=== PATIENT | male | born 1935 | race Asian ===

== ENCOUNTER 2018-06-12 18:53 | Emergency (ER) | payer OTHER ==
[2018-06-12 19:01] VITALS: BP 143/71; TEMP 98.4; BMI 23.9
[2018-06-12] MEDS ORDERED: SODIUM CHLORIDE 1,000 ML IV STA (19:10)
--- NOTE | 2018-06-12 19:22 | PDOC ---
Attending Attestation - Resident Resident Name: Hollis Perez - ED Attending Attestation I have performed the following: I have examined & evaluated the patient, The case was reviewed & discussed with the resident, I agree w/resident's findings & plan, Exceptions are as noted - HPI HPI: 06/12/18 19:19 he was in [place] last week and started to develop upper respiratory infection. -his is also sick -he dev fever,chills,cough,nasal comngestion and weakness - Physicial Exam PE: 06/12/18 19:22 wnwd 82 yo male in no acute distress head ncat neck supple orapharynx no exudates neck supple lungs mild crackles @ bases abd soft,nontender ext no e/c/c skin warm and dry,no rashes neuro axox3,no gross focal neuro deficits - Medical Decision Making 06/12/18 19:37 plan influenza swab,cxr pa and lat ,BC,cbc ,comp 06/12/18 20:47 CBC is unremarkable with white count of only 5 Influenza swab is negative. Chemistries showed a chronically elevated creatinine of 1.6 and a BUN of 34. He has chronic renal insufficiency 06/12/18 21:57 cxr no infiltrates appreciated IMP viral syndrome, common cold,URI plan rest,tylenol,hydrate and follow up with Dr Garcia
[2018-06-12 19:59] LABS: BASO % 0.2 % (0-2.0); EOS % 0.2 % (0-4.5); HEMATOCRIT 40.8 % (35.4-49); HEMOGLOBIN 13.7 GM/dL (11.7-16.9); LYMPH % 15.7 % (8-40); MCH 32.7 pg (25.7-33.7); MCHC 33.6 g/dl (32.0-35.9); MEAN CELL VOLUME 97.3 fl (80-96); MEAN PLT VOLUME 9.6 fl (7.5-11.1); MONO % 15.5 % (3.8-10.2); NEUT % 68.4 % (42.8-82.8); PLATELET COUNT 107 K/MM3 (134-434); RBC 4.19 M/mm3 (4.00-5.60); RDW 14.8 % (11.9-15.9); WHITE BLOOD COUNT 5.1 K/mm3 (4.0-10.0)
[2018-06-12 19:59] LABS: VENOUS PC02 27.3 mmHg (38-52); VENOUS PH 7.34 (7.32-7.42); VENOUS PO2 49.8 mmHg (28-48)
[2018-06-12 20:10] LABS: INR 1.24 (0.83-1.09)
[2018-06-12 20:13] LABS: ACTIVATED PTT 33.8 SECONDS (25.2-36.5)
[2018-06-12 20:29] LABS: ALBUMIN 3.2 g/dl (3.4-5.0); ALK PHOS 45 U/L (45-117); ANION GAP 15 MMOL/L (8-16); BILIRUBIN,TOTAL 0.8 mg/dL (0.2-1); BLOOD UREA NITROGEN 37 mg/dL (7-18); CALCIUM 7.9 mg/dL (8.5-10.1); CHLORIDE 105 mmol/L (98-107); CO2 15 mmol/L (21-32); CREATININE 1.6 mg/dL (0.55-1.3); GLUCOSE,RANDOM 87 mg/dL (74-106); POTASSIUM 3.8 mmol/L (3.5-5.1); SGOT/AST 80 U/L (15-37); SGPT/ALT 44 U/L (13-61); SODIUM 134 mmol/L (136-145); TOT PROT 6.7 g/dl (6.4-8.2)
[2018-06-12] MEDS ORDERED: ALBUTEROL SO4 2.5/IPRATROPIUM 0.5 INH SOL 3 ML VIAL.NEB. NEB ONE ×2 (20:39→21:57)
--- NOTE | 2018-06-12 20:57 | PDOC ---
History of Present Illness - General Chief Complaint: Respiratory Stated Complaint: EVALUATION Time Seen by Provider: 06/12/18 19:06 - History of Present Illness Initial Comments: The patient is a 82M w/ a history of HTN, complete heart block s/p pacemaker and subsequent paroxysmal a-fib (eliquis) who presents with myalgia, malaise, and productive cough since . The patient took Tamiflu on Wednesday with little relief of symptoms. The patient reports that his symptoms feel similar to symptoms he had previously when diagnosed with the flu. The patient endorses fevers at home to 102, chills. Denies SAUCEDA, vision changes, chest pain, SOB, abdominal pain, N/V/D/C, or changes in sensation 06/12/18 22:02 Past History - Past Medical History Allergies/Adverse Reactions: Allergies Allergy/AdvReac Type Severity Reaction Status Date / Time No Known Allergies Allergy Verified 06/12/18 19:00 Home Medications: Ambulatory Orders Guaifenesin AC [Robitussin AC] 10 ml PO HS PRN #60 ml MDD 10ml 06/12/18 Cardiac Disorders: Yes (svt a-fib) COPD: No HTN: Yes - Surgical History Cardiac Surgery: Yes (2015 pacemaker) - Suicide/Smoking/Psychosocial Hx Smoking History: Never smoked Review of Systems - Review of Systems Able to Perform ROS?: Yes Comments:: GENERAL/CONSTITUTIONAL: +fevers/chills initially (not on presentation however). No weakness HEAD, EYES, EARS, NOSE AND THROAT: No change in vision. No ear pain or discharge. No sore throat CARDIOVASCULAR: No chest pain or shortness of breath RESPIRATORY: + productive cough, endorses mild wheezing, denies hemoptysis GASTROINTESTINAL: No nausea, vomiting, diarrhea or constipation GENITOURINARY: No dysuria, frequency, or change in urination MUSCULOSKELETAL: No joint or muscle swelling or pain. No neck or back pain SKIN: No rash NEUROLOGIC: No headache, loss of consciousness, or change in strength/sensation ENDOCRINE: No increased thirst. No abnormal weight change HEMATOLOGIC/LYMPHATIC: No anemia, easy bleeding, or history of blood clots ALLERGIC/IMMUNOLOGIC: No hives or skin allergy 06/13/18 07:08 Is the patient limited [place]an proficient: No *Physical Exam - Vital Signs Last Vital Signs Temp Pulse Resp BP Pulse Ox 98.4 F 89 18 143/71 95 09/23/18 18:57 06/12/18 18:57 06/12/18 18:57 06/12/18 18:57 06/12/18 18:57 - Physical Exam Comments: GENERAL: Awake, alert, and fully oriented, in no acute distress HEAD: No signs of trauma, normocephalic, atraumatic EYES: PERRL, EOMI, sclera anicteric, conjunctiva clear ENT: Hearing grossly normal, nares patent, oropharynx clear without exudates. Moist mucosa NECK: Normal ROM, supple, no lymphadenopathy LUNGS: No distress, speaks full sentences, mild b/l diffuse crackles, saturating well on room air HEART:Regular rate and rhythm, normal S1 and S2, no murmurs appreciated, peripheral pulses normal and equal bilaterally ABDOMEN: Soft, nontender, normoactive bowel sounds. No guarding, no rebound EXTREMITIES : Normal inspection, Normal range of motion, no edema. No clubbing or cyanosis NEUROLOGICAL: Cranial nerves II through XII grossly intact. Normal speech, normal gait, no focal sensorimotor deficits SKIN: Warm, Dry, normal turgor, no rashes or lesions noted 06/13/18 07:13 ED Treatment Course - LABORATORY CBC & Chemistry Diagram: 06/12/18 19:10 06/12/18 19:45 - ADDITIONAL ORDERS Additional order review: Laboratory Results 06/12/18 06/12/18 06/12/18 19:45 19:45 19:45 PT with INR INR PTT (Actin FS) VBG pH POC VBG pCO2 POC VBG pO2 Mixed VBG HCO3 Sodium 134 L Potassium 3.8 Chloride 105 Carbon Dioxide 15 L Anion Gap 15 BUN 37 H Creatinine 1.6 H Creat Clearance w eGFR 41.69 Random Glucose 87 Lactic Acid 1.8 Calcium 7.9 L Total Bilirubin 0.8 AST 80 H ALT 44 Alkaline Phosphatase 45 Troponin I < 0.02 Total Protein 6.7 Albumin 3.2 L 06/12/18 06/12/18 19:45 19:45 PT with INR 14.00 H INR 1.24 H PTT (Actin FS) 33.8 VBG pH 7.34 POC VBG pCO2 27.3 L POC VBG pO2 49.8 H Mixed VBG HCO3 14.4 L* Sodium Potassium Chloride Carbon Dioxide Anion Gap BUN Creatinine Creat Clearance w eGFR Random Glucose Lactic Acid Calcium Total Bilirubin AST ALT Alkaline Phosphatase Troponin I Total Protein Albumin 06/12/18 20:00 Influenza Types A,B Antigen - Final Nasopharyngeal Swab - Final 06/12/18 19:10 RBC 4.19 MCV 97.3 H MCHC 33.6 RDW 14.8 MPV 9.6 Neutrophils % 68.4 Lymphocytes % 15.7 Monocytes % 15.5 H Eosinophils % 0.2 D Basophils % 0.2 - RADIOLOGY Radiology Studies Ordered: Category Date Time Status CHEST PA & LAT [RAD] Stat Radiology 06/12/18 19:11 Ordered - Medications Given in the ED: ED Medications Discontinued Medications Generic Name Dose Route Start Last Admin Trade Name Freq PRN Reason Stop Dose Admin Sodium Chloride 1,000 mls @ 1,000 mls/hr 06/12/18 19:10 06/12/18 20:00 Normal Saline - IV 06/12/18 20:09 1,000 mls/hr ASDIR STA Administration Medical Decision Making - Medical Decision Making The patient is a 82M w/ a history of HTN, complete heart block s/p pacemaker and subsequent paroxysmal a-fib (eliquis) who presents with myalgia, malaise, and productive cough since . Patient took Tamiflu Wednesday. ED Course CMP, CBC, Influenza swab, UA, Trop I 1L NS Duo-neb x1 Influenza swab negative Pt symptoms improved s/p nebs and fluids Will D/C w/ Robitussin Plan discussed with patient who is in agreement and verbalized understanding Return precautions given Dispo: Home w/ PCP f/u 06/13/18 07:19 *DC/Admit/Observation/Transfer Diagnosis at time of Disposition: Cough URI (upper respiratory infection) Qualifiers: URI type: unspecified viral URI Qualified Code(s): J06.9 - Acute upper respiratory infection, unspecified - Discharge Dispostion Disposition: HOME Condition at time of disposition: Stable Decision to Admit order: No - Prescriptions Prescriptions: Guaifenesin AC [Robitussin AC] 10 ml PO HS PRN #60 ml MDD 10ml PRN Reason: Cough - Referrals Referrals: [facility] [place] [facility] [place] [Provider Group] - Patient Instructions Printed Discharge Instructions: DI for Viral Upper Respiratory Infection -- Adult Additional Instructions: You were seen in the Emergency Department today for evaluation of flu-like symptoms. Your Rapid Influenza was negative. Please review the handouts provided at discharge. Please follow up with your primary care physician within the next 1-3 days. Return to the Emergency Department if you develop fevers, worsening symptoms, or new concerning symptoms. - Post Discharge Activity
[2018-06-12 21:00] VITALS: PULSE 81
[2018-06-12] MEDS ORDERED: guaiFENesin/CODEINE 10 ML UNIT-DOSE CUPS PO ONE (22:48)
[2018-06-12] MEDS ORDERED: guaiFENesin/CODEINE 5 ML UNIT-DOSE CUPS PO ONE (22:51)
--- NOTE | 2018-06-13 12:08 | EKG ---
Test Reason : Blood Pressure : / mmHG Vent. Rate : 080 BPM Atrial Rate : 080 BPM P-R Int : 142 ms QRS Dur : 086 ms QT Int : 376 ms P-R-T Axes : 056 003 084 degrees QTc Int : 433 ms NORMAL SINUS RHYTHM POSSIBLE LEFT ATRIAL ENLARGEMENT NONSPECIFIC T WAVE ABNORMALITY ABNORMAL ECG WHEN COMPARED WITH ECG OF 23-FEB-2009 11:37, CRITERIA FOR INFERIOR INFARCT ARE NO LONGER PRESENT T WAVE AMPLITUDE HAS DECREASED IN INFERIOR LEADS NONSPECIFIC T WAVE ABNORMALITY HAS REPLACED INVERTED T WAVES IN LATERAL LEADS Confirmed by CELSO HALL MD ([id number] on 06/13/2018 12:08:21 PM Referred By: Confirmed By:CELSO HALL MD
== END 2018-06-12 23:10 | disposition home or self-care (01) ==
LOC: JER 18:53
PROC: 3E0F7GC Introduction of Other Therapeutic Substance into Respiratory Tract, Via Natural or Artificial Opening (ICD-10-PCS; principal; 2018-06-12)
PROC: 3E0337Z Introduction of Electrolytic and Water Balance Substance into Peripheral Vein, Percutaneous Approach (ICD-10-PCS; 2018-06-12)
DX: J06.9 Acute upper respiratory infection, unspecified (principal); I10 Essential (primary) hypertension; I48.0 Paroxysmal atrial fibrillation; Z79.01 Long term (current) use of anticoagulants; Z95.0 Presence of cardiac pacemaker; I44.2 Atrioventricular block, complete
CPT/HCPCS: 36415; 71046-TC-FY; 80053; 82803; 83605; 84484; 85025; 85610; 85730; 87040; 87804; 93005; 93010; 94640; 96360; 99283-25; J7030; J7620

== ENCOUNTER 2022-05-17 17:55 | Inpatient (IN) | payer OTHER ==
[2022-05-17] MEDS ORDERED: SODIUM CHLORIDE 500 ML IV STA (18:16)
[2022-05-17] MEDS ORDERED: CEFTRIAXONE 1,000 MG in DEXTROSE 5%-WATER - 50 ML IVPB ONE (19:00)
[2022-05-17] MEDS ORDERED: AZITHROMYCIN IVPB 500 MG in DEXTROSE 5%-WATER - 250 ML IVPB ONE (19:01)
[2022-05-17 19:18] LABS: ALBUMIN 2.8 g/dl (3.4-5.0); BILIRUBIN,TOTAL 1.1 mg/dl (0.2-1); CALCIUM 8.2 mg/dl (8.5-10); TOT PROT 5.8 g/dl (6.4-8.2)
[2022-05-17] MEDS ORDERED: cefTRIAXone SODIUM 1 GM VIAL ONE (19:20)
[2022-05-17] MEDS ORDERED: AZITHROMYCIN 500 MG VIAL IVPB ONE (19:20)
[2022-05-17 19:27] LABS: HEMATOCRIT 34.8 % (35.4-49); HEMOGLOBIN 12.4 G/dL (11.7-16.9); MCH 35.4 pg (25.7-33.7); MCHC 35.6 g/dl (32.0-35.9); MEAN CELL VOLUME 99.5 fl (80-96); MEAN PLT VOLUME 10.2 fl (7.5-11.1); RDW 15.6 % (11.9-15.9); WHITE BLOOD COUNT 12.9 10^3/uL (4.0-10.8)
[2022-05-17] MEDS ORDERED: SODIUM CHLORIDE 0.9% 500 ML INFUS.BAG IV ONE (20:51)
[2022-05-17] MEDS: APIXABAN 2.5 MG TABLET PO SCH (22:50)
[2022-05-18] MEDS ORDERED: guaiFENesin 200 MG/10 ML 10 ML UNIT-DOSE CUPS PO PRN (00:14)
[2022-05-18] MEDS: ALBUTEROL SO4 0.083% IH SOL 2.5 MG/3 ML VIAL.NEB. NEB PRN ×5 (00:17→21:27)
[2022-05-18] MEDS ORDERED: PATIENT'S OWN MEDICATION (NON-FORMULARY) (Dorzolamide Hcl/Timolol Maleat [Cosopt Eye Drops OS SCH (07:00)
[2022-05-18 08:16] LABS: ALBUMIN 2.6 g/dl (3.4-5.0); BILIRUBIN,TOTAL 1.2 mg/dl (0.2-1); CALCIUM 8.2 mg/dl (8.5-10); CREATININE 1.8 mg/dl (0.55-1.3); MAGNESIUM 2.1 mg/dL (1.8-2.4); TOT PROT 5.7 g/dl (6.4-8.2)
[2022-05-18 08:58] LABS: HEMATOCRIT 37.3 % (35.4-49); HEMOGLOBIN 12.1 GM/dL (11.7-16.9); MCH 32.1 pg (25.7-33.7); MCHC 32.4 g/dl (32.0-35.9); MEAN CELL VOLUME 99.1 fl (80-96); PLATELET COUNT 128 10^3/uL (134-434); RBC 3.76 M/mm3 (4.00-5.60); RDW 15.6 % (11.9-15.9); WHITE BLOOD COUNT 11.4 K/mm3 (4.0-10.0)
[2022-05-18] MEDS: CALCIUM (OYSTER SHELL) 500 MG TABLET (FP) PO SCH (09:33)
[2022-05-18] MEDS: amLODIPine BESYLATE 2.5 MG TABLET (FP) PO SCH (09:33)
[2022-05-18] MEDS: CEFTRIAXONE 1 GM in DEXTROSE 5%-WATER - 50 ML IVPB SCH (09:33)
[2022-05-18] MEDS: APIXABAN 2.5 MG TABLET PO SCH ×2 (09:33→21:17)
[2022-05-18] MEDS: AZITHROMYCIN IVPB 500 MG/250 ML BAG IVPB SCH (09:35)
[2022-05-18] MEDS: ACETAMINOPHEN 325 MG TABLET (FP) PO PRN ×2 (09:53→21:34)
[2022-05-18 11:00] LABS: ANISOCYTOSIS 1+; MACROCYTOSIS 0; OVALOCYTE 2+; TEAR DROP CELLS 1+
[2022-05-18] MEDS: ERGOCALCIFEROL PO SCH (17:02)
[2022-05-18] MEDS: DORZOLAMIDE 2% HCL OPHTHALMIC SOLUTION 10 ML BOTTLE OS SCH (17:34)
[2022-05-18] MEDS: TIMOLOL 0.5% OPHTHALMIC SOL 5 ML BOTTLE OS SCH (17:34)
[2022-05-18] MEDS: PRAVASTATIN 20 MG PO SCH (21:17)
[2022-05-18] MEDS: DORZOLAMIDE 2% HCL OPHTHALMIC SOLUTION 10 ML BOTTLE OD SCH ×2 (21:18→21:43)
[2022-05-18] MEDS: TIMOLOL 0.5% OPHTHALMIC SOL 5 ML BOTTLE OD SCH (21:24)
[2022-05-18] MEDS ORDERED: PATIENT'S OWN MEDICATION (NON-FORMULARY) (Dorzolamide Hcl/Timolol Maleat [Cosopt Eye Drops OD SCH (22:00)
[2022-05-18] MEDS ORDERED: ATORVASTATIN CA 10 MG TABLET (FP) PO SCH (22:00)
[2022-05-19] MEDS: ALBUTEROL SO4 0.083% IH SOL 2.5 MG/3 ML VIAL.NEB. NEB PRN ×2 (05:00→21:55)
[2022-05-19] MEDS: DORZOLAMIDE 2% HCL OPHTHALMIC SOLUTION 10 ML BOTTLE OS SCH (06:57)
[2022-05-19] MEDS: TIMOLOL 0.5% OPHTHALMIC SOL 5 ML BOTTLE OS SCH (06:58)
[2022-05-19 08:24] LABS: ALBUMIN 2.4 g/dl (3.4-5.0); CREATININE 1.8 mg/dl (0.55-1.3); TOT PROT 5.5 g/dl (6.4-8.2)
[2022-05-19] MEDS: CALCIUM (OYSTER SHELL) 500 MG TABLET (FP) PO SCH (09:57)
[2022-05-19] MEDS: amLODIPine BESYLATE 2.5 MG TABLET (FP) PO SCH (09:57)
[2022-05-19] MEDS: APIXABAN 2.5 MG TABLET PO SCH ×2 (09:57→21:31)
[2022-05-19] MEDS: CEFTRIAXONE 1 GM in DEXTROSE 5%-WATER - 50 ML IVPB SCH (09:59)
[2022-05-19] MEDS: ERGOCALCIFEROL PO SCH (09:59)
[2022-05-19] MEDS: AZITHROMYCIN IVPB 500 MG/250 ML BAG IVPB SCH (10:00)
[2022-05-19] MEDS ORDERED: DOCUSATE SODIUM 100 MG CAPSULE (FP) PO PRN (10:11)
[2022-05-19 10:18] LABS: HEMATOCRIT 38.6 % (35.4-49); HEMOGLOBIN 13.3 G/dL (11.7-16.9); MCH 34.6 pg (25.7-33.7); MCHC 34.4 g/dl (32.0-35.9); MEAN CELL VOLUME 100.6 fl (80-96); MEAN PLT VOLUME 9.6 fl (7.5-11.1); PLATELET COUNT 146.5 10^3/uL (134-434); RBC 3.84 10^6/uL (4.00-5.60); RDW 16.2 % (11.9-15.9); WHITE BLOOD COUNT 12.2 10^3/uL (4.0-10.8)
[2022-05-19] MEDS: SODIUM CHLORIDE 1 GM TABLET PO SCH ×2 (11:17→21:31)
[2022-05-19 11:40] LABS: ANISOCYTOSIS 1+; PLATELET ESTIMATE ADEQUATE
[2022-05-19] MEDS: ACETAMINOPHEN 325 MG TABLET (FP) PO PRN (14:38)
[2022-05-19] MEDS: PRAVASTATIN 20 MG PO SCH (21:32)
[2022-05-19] MEDS: LATANOPROST 0.005% OPHTH SOLN 2.5ML BOTTLE OS SCH (21:34)
[2022-05-19] MEDS: LOTEMAX OS SCH (21:39)
[2022-05-19] MEDS: TIMOLOL 0.5% OPHTHALMIC SOL 5 ML BOTTLE OD SCH (21:39)
[2022-05-19] MEDS: DORZOLAMIDE 2% HCL OPHTHALMIC SOLUTION 10 ML BOTTLE OD SCH (21:47)
[2022-05-20] MEDS: DORZOLAMIDE 2% HCL OPHTHALMIC SOLUTION 10 ML BOTTLE OS SCH (06:28)
[2022-05-20] MEDS: TIMOLOL 0.5% OPHTHALMIC SOL 5 ML BOTTLE OS SCH (06:28)
[2022-05-20 08:26] LABS: ALBUMIN 1.9 g/dl (3.4-5.0); BILIRUBIN,TOTAL 0.9 mg/dl (0.2-1); CALCIUM 7.8 mg/dl (8.5-10); CREATININE 1.5 mg/dl (0.55-1.3); TOT PROT 4.6 g/dl (6.4-8.2)
[2022-05-20] MEDS: CEFTRIAXONE 1 GM in DEXTROSE 5%-WATER - 50 ML IVPB SCH (10:06)
[2022-05-20] MEDS: APIXABAN 2.5 MG TABLET PO SCH ×2 (10:06→21:42)
[2022-05-20] MEDS: AZITHROMYCIN IVPB 500 MG/250 ML BAG IVPB SCH (10:06)
[2022-05-20] MEDS: ERGOCALCIFEROL PO SCH (10:06)
[2022-05-20] MEDS: amLODIPine BESYLATE 2.5 MG TABLET (FP) PO SCH (10:06)
[2022-05-20] MEDS: CALCIUM (OYSTER SHELL) 500 MG TABLET (FP) PO SCH (10:06)
[2022-05-20] MEDS ORDERED: SODIUM CHLORIDE 1 GM TABLET PO ONE (10:15)
[2022-05-20 10:41] LABS: HEMATOCRIT 33.4 % (35.4-49); HEMOGLOBIN 11.1 GM/dL (11.7-16.9); MCH 32.5 pg (25.7-33.7); MCHC 33.2 g/dl (32.0-35.9); MEAN PLT VOLUME 9.1 fl (7.5-11.1); PLATELET COUNT 145 10^3/uL (134-434); RBC 3.41 M/mm3 (4.00-5.60); RDW 15.4 % (11.9-15.9)
[2022-05-20] MEDS: ALBUTEROL SO4 0.083% IH SOL 2.5 MG/3 ML VIAL.NEB. NEB PRN ×2 (11:23→22:43)
[2022-05-20] MEDS: LATANOPROST 0.005% OPHTH SOLN 2.5ML BOTTLE OS SCH (21:44)
[2022-05-20] MEDS: DORZOLAMIDE 2% HCL OPHTHALMIC SOLUTION 10 ML BOTTLE OD SCH (21:50)
[2022-05-20] MEDS: TIMOLOL 0.5% OPHTHALMIC SOL 5 ML BOTTLE OD SCH (21:51)
[2022-05-20] MEDS: LOTEMAX OS SCH (21:52)
[2022-05-20 22:33] VITALS: BMI 26.7
[2022-05-21] MEDS: PRAVASTATIN 20 MG PO SCH ×2 (06:23→21:15)
[2022-05-21] MEDS: ERGOCALCIFEROL PO SCH (10:18)
[2022-05-21] MEDS: amLODIPine BESYLATE 2.5 MG TABLET (FP) PO SCH (10:18)
[2022-05-21] MEDS: DORZOLAMIDE 2% HCL OPHTHALMIC SOLUTION 10 ML BOTTLE OS SCH (10:18)
[2022-05-21] MEDS: APIXABAN 2.5 MG TABLET PO SCH ×2 (10:18→21:14)
[2022-05-21] MEDS: CALCIUM (OYSTER SHELL) 500 MG TABLET (FP) PO SCH (10:18)
[2022-05-21] MEDS: CEFTRIAXONE 1 GM in DEXTROSE 5%-WATER - 50 ML IVPB SCH (10:19)
[2022-05-21] MEDS: TIMOLOL 0.5% OPHTHALMIC SOL 5 ML BOTTLE OS SCH (10:19)
[2022-05-21] MEDS: AZITHROMYCIN IVPB 500 MG/250 ML BAG IVPB SCH (10:20)
[2022-05-21 11:55] LABS: ALBUMIN 2.2 g/dl (3.4-5.0); BILIRUBIN,TOTAL 0.9 mg/dl (0.2-1); CALCIUM 7.9 mg/dl (8.5-10); CREATININE 1.3 mg/dl (0.55-1.3); TOT PROT 5.3 g/dl (6.4-8.2)
[2022-05-21 12:11] LABS: HEMATOCRIT 35.9 % (35.4-49); HEMOGLOBIN 12.1 G/dL (11.7-16.9); MCH 33.5 pg (25.7-33.7); MCHC 33.8 g/dl (32.0-35.9); MEAN CELL VOLUME 99.2 fl (80-96); MEAN PLT VOLUME 8.5 fl (7.5-11.1); PLATELET COUNT 168.4 10^3/uL (134-434); RBC 3.62 10^6/uL (4.00-5.60); RDW 15.6 % (11.9-15.9); WHITE BLOOD COUNT 7.2 10^3/uL (4.0-10.8)
[2022-05-21] MEDS ORDERED: POTASSIUM CHLORIDE TABS 20 MEQ TABLET.ER (FP) PO ONE (14:15)
[2022-05-21 14:52] LABS: PLATELET ESTIMATE ADEQUATE
[2022-05-21] MEDS ORDERED: guaiFENesin/CODEINE 10 ML UNIT-DOSE CUPS PO PRN (16:37)
[2022-05-21] MEDS: ALBUTEROL SO4 0.083% IH SOL 2.5 MG/3 ML VIAL.NEB. NEB PRN (19:31)
[2022-05-21] MEDS: TIMOLOL 0.5% OPHTHALMIC SOL 5 ML BOTTLE OD SCH (21:15)
[2022-05-21] MEDS: LOTEMAX OS SCH (21:15)
[2022-05-21] MEDS: LATANOPROST 0.005% OPHTH SOLN 2.5ML BOTTLE OS SCH (21:16)
[2022-05-21] MEDS: DORZOLAMIDE 2% HCL OPHTHALMIC SOLUTION 10 ML BOTTLE OD SCH (21:16)
[2022-05-21 22:16] VITALS: RESP 18
[2022-05-22] MEDS: TIMOLOL 0.5% OPHTHALMIC SOL 5 ML BOTTLE OS SCH (06:18)
[2022-05-22] MEDS: DORZOLAMIDE 2% HCL OPHTHALMIC SOLUTION 10 ML BOTTLE OS SCH (06:18)
[2022-05-22 08:11] LABS: BILIRUBIN,TOTAL 0.7 mg/dl (0.2-1); CALCIUM 7.7 mg/dl (8.5-10); CREATININE 1.3 mg/dl (0.55-1.3); TOT PROT 4.8 g/dl (6.4-8.2)
[2022-05-22] MEDS: AZITHROMYCIN IVPB 500 MG/250 ML BAG IVPB SCH (09:27)
[2022-05-22] MEDS: CEFTRIAXONE 1 GM in DEXTROSE 5%-WATER - 50 ML IVPB SCH (09:27)
[2022-05-22] MEDS: amLODIPine BESYLATE 2.5 MG TABLET (FP) PO SCH (09:28)
[2022-05-22] MEDS: APIXABAN 2.5 MG TABLET PO SCH (09:28)
[2022-05-22 09:32] LABS: BASO % 0.4 % (0-2.0); EOS % 7.4 % (0-4.5); HEMATOCRIT 33.8 % (35.4-49); HEMOGLOBIN 11.3 GM/dL (11.7-16.9); LYMPH % 15.4 % (8-40); MCH 32.5 pg (25.7-33.7); MCHC 33.5 g/dl (32.0-35.9); MEAN CELL VOLUME 96.9 fl (80-96); MEAN PLT VOLUME 8.3 fl (7.5-11.1); MONO % 11.3 % (3.8-10.2); NEUT % 65.5 % (42.8-82.8); PLATELET COUNT 182 10^3/uL (134-434); RBC 3.48 M/mm3 (4.00-5.60); RDW 15.9 % (11.9-15.9); WHITE BLOOD COUNT 5.3 K/mm3 (4.0-10.0)
[2022-05-22] MEDS: CALCIUM (OYSTER SHELL) 500 MG TABLET (FP) PO SCH (10:33)
[2022-05-22] MEDS: ERGOCALCIFEROL PO SCH (10:33)
[2022-05-22 10:38] VITALS: BP 144/66; PULSE 71; TEMP 97.7
== END 2022-05-22 15:36 | disposition home or self-care (01) | DRG 178 ==
LOC: FER 17:55 → FM/S 20:41
PROVIDERS: ADMIT Internal Medicine
DX: A48.1 Legionnaires' disease (principal); E87.1 Hypo-osmolality and hyponatremia; I13.0 Hypertensive heart and chronic kidney disease with heart failure and stage 1 through stage 4 chronic kidney disease, or unspecified chronic kidney disease; I50.32 Chronic diastolic (congestive) heart failure; I48.91 Unspecified atrial fibrillation; N18.9 Chronic kidney disease, unspecified; D69.6 Thrombocytopenia, unspecified; Z85.46 Personal history of malignant neoplasm of prostate; E87.6 Hypokalemia
CPT/HCPCS: 0241U-QW; 36415; 71046-TC-FY; 71250-TC; 80053; 83605; 83735; 83930; 84300; 84484; 85025; 85027; 87040; 87070; 87899; 93005; 94640; 97116-GP; 97162-GP; 99285-25